=== PATIENT | male | born 1940 | race Caucasian/White ===

== ENCOUNTER → 2016-12-24 | Outpatient (CLI) | payer OTHER, MEDICARE ==
[2015-07-05 19:52] VITALS: BP 120/64
--- NOTE | 2016-12-25 07:58 | RAD ---
Left shoulder, three views Indication: Shoulder pain, fall 2 weeks ago Comparison: None Findings: No acute fracture or malalignment is identified. There is mild glenohumeral and moderate A C joint DJD. The acromiohumeral interval is mildly narrowed, suggestive for rotator cuff insufficien cy. Soft tissues are unremarkable. Impression: Moderate AC and mild glenohumeral joint DJD with narrowing of the acromiohumeral interva l, suggestive for rotator cuff insufficiency. Reported By:
== END | disposition home or self-care (01) | DRG 556 ==
LOC: RAD 15:08
PROVIDERS: ATTEND Nurse Practitioner Family
DX: M25.512 Pain in left shoulder (principal); M19.012 Primary osteoarthritis, left shoulder
CPT/HCPCS: 73030

== ENCOUNTER 2017-01-08 20:47 | Inpatient (IN) | payer OTHER, MEDICARE ==
[2017-01-08] MEDS ORDERED: DILAUDID INJ IVP ONE (20:50)
[2017-01-08] MEDS ORDERED: DILAUDID INJ IM ONE (20:51)
[2017-01-08] MEDS ORDERED: DILAUDID INJ ONE (20:51)
--- NOTE | 2017-01-08 20:52 | DR.GENAD ---
HPI - Complaint/Symptoms Chief Complaint Doctors Comments: Patient fell on porch just prior to being seen. He reports that he fell on the porch at home. He has 10/10 pain, sharp, aggravated by movement. He has a BKA of the right lower extremity PMH - PMH Past Medical History: Coronary Artery Disease, Diabetes, GERD Past Surgical History: Yes Surgical History: Angioplasty/Stents, CABG/Valve Surgery, Cholecystectomy, Other - Family History Family Medical History: Diabetes Mellitus, Cancer - Social History Do you use any recreational Drugs:: No ROS - Review of Systems Eyes: No Symptoms Reported ENTM: No Symptoms Reported Respiratoy: No Symptoms Reported Cardiovascular: No Symptoms Reported Gastrointestinal/Abdominal: No Symptoms Reported Genitourinary: No Symptoms Reported Neurological: No Symptoms Reported Musculoskeletal: No Symptoms Reported, Joint Pain (right hip), Other (BKA right lower extremity) Integumentary: No Symptoms Reported Hematologic/Lymphatic: No Symptoms Reported Endocrine: No Symptoms Reported Psychiatric: No Symptoms Reported All Other Systems: Reviewed and Negative PE - Vital Signs Vitals: Temperature 98.1 F Pulse Rate 59 Respiratory Rate 22 Blood Pressure [Right Arm] 132/60 Blood Pressure [Left Arm] 117/60 Blood Pressure 116/64 O2 Sat by Pulse Oximetry 85 - General General Appearance: Alert, In Distress (right hip pain) - Head Head Exam: Normal Inspection, Atraumatic - Eyes Eye exam: Normal Appearance, PERRL, EOMI - ENT ENT Exam: Normal Exam External Ear Exam: Normal External Inspection TM/Canal Exam: Bilateral Normal Nose Exam: Normal Nose Exam Mouth Exam: Normal Inspection Throat Exam: Normal Inspection - Neck Neck Exam: Normal Inspection, Full ROM - Chest Chest Inspection: Normal Inspection - Respiratory Respiratory Exam: Normal Lung Sounds Bilat Respiratory Exam: Bilateral Clear to Auscultation - Cardiovascular Cardiovascular Exam: Regular Rate, Normal Rhythm - Abdominal Exam Abdominal Exam: Normal Inspection, Normal Bowel Sounds Abdominal Tenderness: negative: RUQ, RLQ, LUQ, LLQ, Epigastrium, Suprapubic, Diffuse, Mild, Moderate, Severe, Other - Extremities Extremities Exam: Normal Inspection - Back Back Exam: Normal Inspection - Neurologic Neurological Exam: Alert, Oriented X3, CN II-XII Intact - Psychiatric Psychiatric Exam: Normal Affect, Normal Mood - Skin Skin Exam: Warm, Dry, Normal Color Course - Consultation Called: 22:50 (Dr Calix agreed to admit for pain management with consult to ortho) ROR - XRAY XRAY Interpreted by: Radiologist - Diagnosis Discharge Problem: Intertrochanteric fracture of right femur Qualifiers: Encounter type: initial encounter Fracture type: closed Fracture alignment: nondisplaced Qualified Code(s): S72.144A - Nondisplaced intertrochanteric fracture of right femur, initial encounter for closed fracture - Discharge Plan Condition: Stable - Follow ups/Referrals Follow ups/Referrals: NFD,None [STAFF PHYSICIAN] - 3 days - Instructions
--- NOTE | 2017-01-08 21:42 | RAD ---
Right hip, two views Indication: Right hip pain after fall. Findings: There is within curvilinear lucency overlying the base of the right femoral neck, seen on t he AP view. No significant bony displacement. The femoral head is normally seated within the acetabul um. The bones are subjectively osteopenic. Impression: Suspect nondisplaced basicervical right femoral neck fracture. Recommend CT for further e valuation. Reported By:
--- NOTE | 2017-01-08 22:32 | CT ---
EXAM: CT right hip without contrast INDICATION: Fall, hip pain COMPARISION: X-ray obtained on January 08, 2017 TECHNIQUE: Axial CT examination of the right hip was performed without intravenous contrast. Coronal and sagitta l reconstructions were created using the axial data. FINDINGS: Is a comminuted intertrochanteric fracture of the right femur. Fracture fragments are minimally displ aced. No measurable angulation. No dislocation. Hip joint spaces preserved. Surrounding soft tissues demonstrate no discrete hematoma formation. Subcutaneous soft tissues appear unremarkable. IMPRESSION: 1: There is a minimally displaced intertrochanteric fracture of the right femur. Reported By:
[2017-01-08] MEDS ORDERED: MORPHINE SULFATE INJ 4 MG IVP PRN (23:44)
[2017-01-08] MEDS ORDERED: D5W 1000 ML IV 1,000 ML IV SCH (23:45)
[2017-01-09] MEDS: DILAUDID INJ IVP PRN ×3 (01:31→09:53)
[2017-01-09 01:45] VITALS: BMI 24.1
[2017-01-09 04:52] LABS: BILIRUBIN,URINE NEGATIVE (NEGATIVE); BLOOD/HEMOGLOBIN,URINE 4+ (NEGATIVE); GLUCOSE, URINE NEGATIVE (NEGATIVE); KETONES,URINE NEGATIVE (NEGATIVE); LEUKOCYTE ESTERASE ,URINE NEGATIVE (NEGATIVE); NITRITES,URINE NEGATIVE (NEGATIVE); PROTEIN,URINE NEGATIVE (NEGATIVE); UROBILINOGEN,URINE 1+ (NORMAL)
[2017-01-09 05:08] LABS: APPEARANCE,URINE CLEAR (CLEAR); COLOR,URINE YELLOW (YELLOW)
[2017-01-09 05:09] LABS: BACTERIA,URINE NEGATIVE /HPF (NEGATIVE); SQUAMOUS EPITHELIAL CELL,UR RARE /HPF (NEGATIVE)
[2017-01-09 06:10] LABS: BASOPHILS % (AUTO) 0.2 % (0.2-1.0); EOSINOPHILS % (AUTO) 0.2 % (0.9-2.9); HEMATOCRIT 36.5 % (42.0-54.0); HEMOGLOBIN 12.7 g/dL (13.5-18.0); LYMPHOCYTES # (AUTO) 0.6 X10^3/uL (1.3-2.9); LYMPHOCYTES % (AUTO) 5.4 % (21.0-51.0); MEAN CORPUSCULAR HEMOGLOBIN 31.2 pg (27.0-34.0); MEAN CORPUSCULAR HGB CONC 34.7 g/dL (33.0-35.0); MEAN CORPUSCULAR VOLUME 89.8 fL (80.0-100.0); MEAN PLATELET VOLUME 8.8 fL (7.4-11.0); MONOCYTES # (AUTO) 0.8 x10^3/uL (0.3-0.8); MONOCYTES % (AUTO) 7.7 % (0.0-13.0); NEUTROPHILS # (AUTO) 8.8 x10^3/uL (2.2-4.8); NEUTROPHILS % (AUTO) 86.5 % (42.0-75.0); PLATELET COUNT 150 X10^3/uL (150.0-450.0); RED BLOOD COUNT 4.07 X10^6/uL (4.7-6.0); RED CELL DISTRIBUTION WIDTH 15.6 % (11.6-16.5); WHITE BLOOD COUNT 10.2 X10^3/uL (3.6-10.0)
[2017-01-09 06:34] LABS: ALANINE AMINOTRANSFERASE 25 Units/L (12-78); ALBUMIN 3.4 g/dL (3.4-5.0); ALKALINE PHOSPHATASE 51 Units/L (46-116); ASPARTATE AMINO TRANSFERASE 26 Units/L (15-37); BLOOD UREA NITROGEN 15 mg/dL (7-18); CARBON DIOXIDE 27.4 mmol/L (21-32); CHLORIDE 99 mmol/L (98-107); COR NA(FOR HYPERGLY) 137 mmol/L (136-145); CREATININE 1.18 mg/dL (0.70-1.30); SODIUM 135 mmol/L (136-145); TOTAL PROTEIN 7.1 g/dL (6.4-8.2); eGFR BLACK RACES > 60 (>60); eGFR NON BLACK RACES > 60 (>60)
--- NOTE | 2017-01-09 06:44 | RAD ---
HISTORY: Injury, fall, hip fracture Study: AP portable chest Comparison: July 05, 2015 Findings: The patient is status post median sternotomy and CABG. The heart is enlarged. No congestive heart adam lure is noted. No infiltrates are identified. The bony thorax is unremarkable. IMPRESSION: Cardiomegaly without congestive heart failure Lungs clear Reported By:
[2017-01-09] MEDS ORDERED: LOVENOX INJ 40 MG SYR SC SCH (09:00)
--- NOTE | 2017-01-09 10:38 | RAD ---
HISTORY: Injury, fall, right forearm pain Study: Right forearm AP and ladder Comparison: None Findings: The patient is status post amputation at the level of the mid radial and ulnar shafts. The residual r adius and ulna appear intact. No fracture, lytic, or blastic lesion is identified. Incidental note is made of a normal-appearing elbow joint. IMPRESSION: Postsurgical changes as above No acute findings Reported By:
[2017-01-09] MEDS ORDERED: DILAUDID INJ IVP ONE (12:07)
[2017-01-09 12:18] VITALS: BP 124/57
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
== END 2017-01-09 12:15 | disposition short-term general hospital (02) | DRG 536 ==
LOC: ER 20:50 → ICU 23:36
PROVIDERS: ADMIT Internal Medicine; ATTEND Internal Medicine
DX: S72.141A Displaced intertrochanteric fracture of right femur, initial encounter for closed fracture (principal); S20.211A Contusion of right front wall of thorax, initial encounter; W19.XXXA Unspecified fall, initial encounter; Y92.89 Other specified places as the place of occurrence of the external cause; K21.9 Gastro-esophageal reflux disease without esophagitis; E11.65 Type 2 diabetes mellitus with hyperglycemia; I25.10 Atherosclerotic heart disease of native coronary artery without angina pectoris; M25.551 Pain in right hip; R94.31 Abnormal electrocardiogram [ECG] [EKG]; R07.1 Chest pain on breathing; Z85.46 Personal history of malignant neoplasm of prostate; Z89.511 Acquired absence of right leg below knee; Z89.211 Acquired absence of right upper limb below elbow
CPT/HCPCS: 36415; 71010; 73090; 73501; 73700; 80053; 81001; 85002; 85025; 85610; 86850; 86900; 86901; 86922; 93005; 93010; 96365; 96374; 99284; A4222; J2270